=== PATIENT | male | born 1960 | race Caucasian/White ===

== ENCOUNTER 2017-09-19 12:52 | Outpatient (RCR) | payer MEDICARE ==
[2017-09-19] MEDS: HEPARIN SOD (PORCINE) UNIT/HR IVP PRN (11:15)
[2017-09-19] MEDS: HEPARIN SOD (PORCINE) LOAD IVP PRN (11:15)
[~2017-09-19 12:52] MED LIST: CINACALCET HCL 90 MG PO PRN; DEXTROSE 50% 50 ML SYR IVP PRN; DIALYSIS ACETAMINOPHEN 325 MG PO PRN; LIDOCAINE/SOD BICARB 8.4% SYR ID PRN; LOPERAMIDE HCL 2 MG CAP PO PRN; PROMETHAZINE HCL 25 MG TAB PO PRN; SODIUM FERRIC GLUC 62.5 MG/5ML IVP PRN; diphenhydr DIALYSIS 50 MG/ML IVP PRN
[2017-09-19] MEDS: PARICALCITOL 2 MCG/ML VIAL IVP PRN (12:58)
[2017-09-20] MEDS ORDERED: CALC667T3 PO (15:44)
[2017-09-20] MEDS ORDERED: FLUT1DIS27 IH (15:44)
[2017-09-20] MEDS ORDERED: VIT-35 PO (15:44)
[2017-09-20] MEDS ORDERED: ATOR10TA24 PO (15:44)
[2017-09-20] MEDS ORDERED: TEMA-55 PO (15:44)
[2017-09-20] MEDS ORDERED: DILT180C4 PO (15:44)
[2017-09-20] MEDS ORDERED: SEVE800T16 PO (15:44)
[2017-09-20] MEDS ORDERED: ASPI-1471 PO (15:44)
[2017-09-20] MEDS ORDERED: ERGO500037 PO (15:44)
[2017-09-20] MEDS ORDERED: CINA90TA2 PO (15:44)
[2017-09-20] MEDS ORDERED: TRAM-420 PO (15:44)
[2017-09-20] MEDS ORDERED: OXYC-865 PO (16:03)
[2017-09-21] MEDS ORDERED: ACET-1966 PO (08:57)
[2017-09-21] MEDS ORDERED: LOR1 (08:57)
[2017-09-21] MEDS ORDERED: ALBU8.5H IH (08:57)
[2017-09-21] MEDS: HEPARIN SOD (PORCINE) LOAD IVP PRN (11:38)
[2017-09-21] MEDS: HEPARIN SOD (PORCINE) UNIT/HR IVP PRN (11:38)
[2017-09-21] MEDS: PARICALCITOL 2 MCG/ML VIAL IVP PRN (12:20)
[2017-09-21 12:45] LABS: PLATELET COUNT, AUTOMATED 274 K/uL (150-450)
[2017-09-22] MEDS ORDERED: WARF1TAB15 PO (16:14)
[2017-09-22] MEDS ORDERED: WARF2.5T11 PO (16:16)
[2017-09-22] MEDS ORDERED: UMEC1DIS INH (16:21)
[2017-09-23] MEDS: HEPARIN SOD (PORCINE) UNIT/HR IVP PRN (11:22)
[2017-09-23] MEDS: HEPARIN SOD (PORCINE) LOAD IVP PRN (11:22)
[2017-09-23] MEDS: DARBEPOETIN ESRD 25 MCG/ML IVP PRN (11:48)
[2017-09-23] MEDS: PARICALCITOL 2 MCG/ML VIAL IVP PRN (11:49)
[2017-09-26] MEDS: HEPARIN SOD (PORCINE) UNIT/HR IVP PRN (11:18)
[2017-09-26] MEDS: HEPARIN SOD (PORCINE) LOAD IVP PRN (11:19)
[2017-09-26] MEDS: PARICALCITOL 2 MCG/ML VIAL IVP PRN (11:58)
[2017-09-26] MEDS ORDERED: TRIA15OI20 TP (16:48)
[2017-09-28] MEDS: HEPARIN SOD (PORCINE) UNIT/HR IVP PRN (11:45)
[2017-09-28] MEDS: HEPARIN SOD (PORCINE) LOAD IVP PRN (11:46)
[2017-09-28] MEDS: SODIUM FERRIC GLUC 62.5 MG/5ML IVP PRN (13:16)
[2017-09-28] MEDS: PARICALCITOL 2 MCG/ML VIAL IVP PRN (13:17)
[2017-09-29] MEDS ORDERED: METO50TA19 PO (13:49)
[2017-09-29] MEDS ORDERED: DILT180C4 PO (13:49)
[2017-09-29] MEDS ORDERED: HYDR-4225 PO (13:52)
[2017-09-29] MEDS ORDERED: PRED-420 PO (16:48)
[2017-09-30] MEDS: HEPARIN SOD (PORCINE) UNIT/HR IVP PRN (11:32)
[2017-09-30] MEDS: HEPARIN SOD (PORCINE) LOAD IVP PRN (11:32)
[2017-09-30] MEDS: PARICALCITOL 2 MCG/ML VIAL IVP PRN (12:39)
[2017-09-30] MEDS: DARBEPOETIN ESRD 25 MCG/ML IVP PRN (12:39)
[2017-09-30] MEDS: SODIUM FERRIC GLUC 62.5 MG/5ML IVP PRN (12:39)
[2017-10-03] MEDS: HEPARIN SOD (PORCINE) UNIT/HR IVP PRN (11:36)
[2017-10-03] MEDS: HEPARIN SOD (PORCINE) LOAD IVP PRN (11:37)
[2017-10-03] MEDS: SODIUM FERRIC GLUC 62.5 MG/5ML IVP PRN (12:02)
[2017-10-03] MEDS: PARICALCITOL 2 MCG/ML VIAL IVP PRN (12:02)
[2017-10-05] MEDS: HEPARIN SOD (PORCINE) LOAD IVP PRN (11:51)
[2017-10-05] MEDS: HEPARIN SOD (PORCINE) UNIT/HR IVP PRN (11:51)
[2017-10-05] MEDS: PARICALCITOL 2 MCG/ML VIAL IVP PRN (12:34)
[2017-10-05] MEDS ORDERED: SODIUM FERRIC GLUC 62.5 MG/5ML IVP PRN (12:40)
[2017-10-05] MEDS ORDERED: PRED-420 PO ×2 (13:19→15:53)
[2017-10-07] MEDS: HEPARIN SOD (PORCINE) UNIT/HR IVP PRN (11:41)
[2017-10-07] MEDS: HEPARIN SOD (PORCINE) LOAD IVP PRN (11:41)
[2017-10-07] MEDS: PARICALCITOL 2 MCG/ML VIAL IVP PRN (12:41)
[2017-10-07] MEDS: DARBEPOETIN ESRD 25 MCG/ML IVP PRN (12:41)
[2017-10-10] MEDS: HEPARIN SOD (PORCINE) LOAD IVP PRN (11:47)
[2017-10-10] MEDS: HEPARIN SOD (PORCINE) UNIT/HR IVP PRN (11:47)
[2017-10-10] MEDS: PARICALCITOL 2 MCG/ML VIAL IVP PRN (13:06)
[2017-10-12] MEDS ORDERED: SODIUM FERRIC GLUC 62.5 MG/5ML IVP PRN (23:59)
[2017-10-28] MEDS: HEPARIN SOD (PORCINE) LOAD IVP PRN (13:42)
[2017-10-28] MEDS: HEPARIN SOD (PORCINE) UNIT/HR IVP PRN (13:42)
[2017-10-28] MEDS: SODIUM FERRIC GLUC 62.5 MG/5ML IVP PRN (15:20)
[2017-10-28] MEDS: DARBEPOETIN ESRD 25 MCG/ML IVP PRN (15:21)
[2017-10-28] MEDS: PARICALCITOL 2 MCG/ML VIAL IVP PRN (15:21)
[2017-10-31] MEDS: HEPARIN SOD (PORCINE) LOAD IVP PRN (13:37)
[2017-10-31] MEDS: HEPARIN SOD (PORCINE) UNIT/HR IVP PRN (13:38)
[2017-10-31] MEDS: PARICALCITOL 2 MCG/ML VIAL IVP PRN (14:13)
[2017-10-31] MEDS: SODIUM FERRIC GLUC 62.5 MG/5ML IVP PRN (14:13)
[2017-11-02] MEDS: HEPARIN SOD (PORCINE) LOAD IVP PRN (13:53)
[2017-11-02] MEDS: HEPARIN SOD (PORCINE) UNIT/HR IVP PRN (13:53)
[2017-11-02] MEDS: SODIUM FERRIC GLUC 62.5 MG/5ML IVP PRN (14:09)
[2017-11-02] MEDS ORDERED: WARF2.5T62 PO (18:58)
[2017-11-02] MEDS ORDERED: CALC667T3 PO (18:58)
[2017-11-02] MEDS ORDERED: CIN30PT PO (18:58)
[2017-11-02] MEDS ORDERED: SEVE800T16 PO (18:58)
[2017-11-02] MEDS ORDERED: OXYC-823 PO (19:02)
[2017-11-04] MEDS: HEPARIN SOD (PORCINE) LOAD IVP PRN (13:42)
[2017-11-04] MEDS: HEPARIN SOD (PORCINE) UNIT/HR IVP PRN (13:42)
[2017-11-04] MEDS: PARICALCITOL 2 MCG/ML VIAL IVP PRN (14:07)
[2017-11-04] MEDS: DARBEPOETIN ESRD 25 MCG/ML IVP PRN (14:07)
[2017-11-04] MEDS: SODIUM FERRIC GLUC 62.5 MG/5ML IVP PRN (14:08)
[2017-11-09] MEDS ORDERED: SODIUM FERRIC GLUC 62.5 MG/5ML IVP PRN (07:00)
[2017-11-10] MEDS ORDERED: DILT180C4 PO (16:58)
[2017-11-11] MEDS: HEPARIN SOD (PORCINE) LOAD IVP PRN (13:37)
[2017-11-11] MEDS: HEPARIN SOD (PORCINE) UNIT/HR IVP PRN (13:37)
[2017-11-11] MEDS ORDERED: TRAM-420 PO (13:46)
[2017-11-11] MEDS ORDERED: TEMA-55 PO (13:46)
[2017-11-11] MEDS ORDERED: OXYC5TAB38 PO (13:46)
[2017-11-11] MEDS: PARICALCITOL 2 MCG/ML VIAL IVP PRN (14:19)
[2017-11-11] MEDS: DARBEPOETIN ESRD 25 MCG/ML IVP PRN (14:19)
[2017-11-14] MEDS: HEPARIN SOD (PORCINE) UNIT/HR IVP PRN (13:35)
[2017-11-14] MEDS: HEPARIN SOD (PORCINE) LOAD IVP PRN (13:35)
[2017-11-14] MEDS: PARICALCITOL 2 MCG/ML VIAL IVP PRN (14:21)
[2017-11-15] MEDS ORDERED: TRAZ-156 PO (15:59)
[2017-11-16] MEDS: HEPARIN SOD (PORCINE) UNIT/HR IVP PRN (13:52)
[2017-11-16] MEDS: HEPARIN SOD (PORCINE) LOAD IVP PRN (13:52)
[2017-11-16] MEDS: PARICALCITOL 2 MCG/ML VIAL IVP PRN (14:24)
[2017-11-16 14:43] LABS: PLATELET COUNT, AUTOMATED 238 K/uL (150-450)
[2017-11-16 15:09] LABS: INR 1.08
[2017-11-16] MEDS ORDERED: DARBEPOETIN ESRD 100 MCG/0.5ML SYR IVP PRN (16:00)
== END 2017-11-16 12:00 | disposition home or self-care (01) ==
LOC: DIAL 12:52
PROVIDERS: ATTEND Internal Medicine Nephrology
DX: D50.9 Iron deficiency anemia, unspecified (principal); N25.81 Secondary hyperparathyroidism of renal origin; D63.1 Anemia in chronic kidney disease; E11.65 Type 2 diabetes mellitus with hyperglycemia; I12.0 Hypertensive chronic kidney disease with stage 5 chronic kidney disease or end stage renal disease; N18.6 End stage renal disease; Z99.2 Dependence on renal dialysis; Z79.82 Long term (current) use of aspirin; I48.91 Unspecified atrial fibrillation; J44.9 Chronic obstructive pulmonary disease, unspecified; Z99.81 Dependence on supplemental oxygen; I51.7 Cardiomegaly; Z87.891 Personal history of nicotine dependence; E78.5 Hyperlipidemia, unspecified; E78.00 Pure hypercholesterolemia, unspecified; E11.22 Type 2 diabetes mellitus with diabetic chronic kidney disease
CPT/HCPCS: 82040; 82108; 82247; 82310; 82374; 82465; 82565; 82728; 82947; 83540; 83550; 83970; 84075; 84100; 84132; 84295; 84460; 84478; 84520; 85018; 85025; 85610; 86706; 87340; 90999; A4657; J0882; J2501; J2916

== ENCOUNTER → 2017-09-20 | Outpatient (CLI) | payer MEDICARE ==
[~2017-09-20] MED LIST changes: +ACET-1966 PO; +ALBU8.5H IH; +ASPI-1471 PO; +ATOR10TA24 PO; +CALC667T3 PO; +CINA90TA2 PO; -CINACALCET HCL 90 MG PO PRN; -DEXTROSE 50% 50 ML SYR IVP PRN; -DIALYSIS ACETAMINOPHEN 325 MG PO PRN; +DILT180C4 PO; +ERGO500037 PO; +FLUT1DIS27 IH; +HYDR-4225 PO; -LIDOCAINE/SOD BICARB 8.4% SYR ID PRN; -LOPERAMIDE HCL 2 MG CAP PO PRN; +LOR1; +METO50TA19 PO; +OXYC-865 PO; +PRED-420 PO; -PROMETHAZINE HCL 25 MG TAB PO PRN; +SEVE800T16 PO; -SODIUM FERRIC GLUC 62.5 MG/5ML IVP PRN; +TEMA-55 PO; +TRAM-420 PO; +TRIA15OI20 TP; +UMEC1DIS INH; +VIT-35 PO; +WARF1TAB15 PO; +WARF2.5T11 PO; -diphenhydr DIALYSIS 50 MG/ML IVP PRN
--- NOTE | 2017-09-20 15:40 | EKG ---
FACILITY: [facility] - [place] PATIENT NAME: HERLINDA SCHUMACHER : [id number] MR: [id number] V: [id number] EXAM DATE: ORDERING PHYSICIAN: SEVERIANO HAMM TECHNOLOGIST: NAGA Test Reason : AFIB Blood Pressure : / mmHG Vent. Rate : 129 BPM Atrial Rate : 141 BPM P-R Int : 000 ms QRS Dur : 090 ms QT Int : 328 ms P-R-T Axes : 000 090 040 degrees QTc Int : 480 ms Atrial fibrillation Abnormal ECG No previous ECGs available Referred By: HANSEL Confirmed By:
[2017-09-20 16:05] LABS: PLATELET COUNT, AUTOMATED 244 K/uL (150-450)
[2017-09-20 17:47] LABS: INR 1.13
== END ==
LOC: LAB 15:31
PROVIDERS: ATTEND Internal Medicine
DX: I48.91 Unspecified atrial fibrillation (principal); I12.9 Hypertensive chronic kidney disease with stage 1 through stage 4 chronic kidney disease, or unspecified chronic kidney disease; M19.90 Unspecified osteoarthritis, unspecified site; J44.9 Chronic obstructive pulmonary disease, unspecified; N18.6 End stage renal disease; I77.6 Arteritis, unspecified; R06.00 Dyspnea, unspecified
CPT/HCPCS: 36415; 82040; 82247; 82310; 82374; 82435; 82565; 82947; 83036; 83880; 84075; 84132; 84155; 84295; 84443; 84450; 84460; 84484; 84520; 84550; 85025; 85610; 85651; 85730; 86200

== ENCOUNTER → 2017-09-22 | Outpatient (CLI) | payer MEDICARE ==
[~2017-09-22] MED LIST changes: -HYDR-4225 PO; -METO50TA19 PO; -PRED-420 PO; -TRIA15OI20 TP
--- NOTE | 2017-09-22 16:02 | RADIOLOGY IMAGING REPORT ---
FACILITY: [facility] - [place] PATIENT NAME: Dale Gutierrez : 1960 MR: [id number] V: [id number] EXAM DATE: ORDERING PHYSICIAN: SEVERIANO HAMM TECHNOLOGIST: Location: [facility] [place] Patient: Dale Gutierrez : 1960 Visit/Account:[id number] Date of Sevice: 09/22/2017 Exam type: CHEST PA AND LAT History: Chronic A. fib, benign hypertension Comparison: None. Findings: There is moderate blunting of the costophrenic angles bilaterally right greater than left. Different ial diagnosis would include pleural thickening versus bilateral pleural effusions. There is no evide nce of overt pulmonary edema or focal infiltrates. The cardiac silhouette is upper limits of normal in size. There are postsurgical changes of the cervical spine IMPRESSION: 1. Moderate blunting of the costophrenic angles bilaterally, right greater than left consistent with pleural thickening versus pleural effusions. (There are no prior studies available for comparison) Report Dictated By: Bethany Swann MD at 09/22/2017 3:57 PM Report E-Signed By: Bethany Swann MD at 09/22/2017 3:58 PM WSN:[email or web address]
== END ==
LOC: RAD 15:03
PROVIDERS: ATTEND Internal Medicine
DX: R91.8 Other nonspecific abnormal finding of lung field (principal)
CPT/HCPCS: 71046

== ENCOUNTER → 2017-09-26 | Outpatient (REF) | payer MEDICARE ==
[~2017-09-26] MED LIST changes: +TRIA15OI20 TP
[2017-09-26 12:47] LABS: INR 1.04
== END ==
LOC: ZZSENDIN 12:21
PROVIDERS: ATTEND Internal Medicine
DX: I48.91 Unspecified atrial fibrillation (principal)
CPT/HCPCS: 36415; 85610

== ENCOUNTER → 2017-09-28 | Outpatient (REF) | payer MEDICARE ==
[~2017-09-28] MED LIST changes: +HYDR-4225 PO; +METO50TA19 PO; +PRED-420 PO
[2017-09-28 12:57] LABS: INR 1.13
== END ==
LOC: ZZSENDIN 12:32
PROVIDERS: ATTEND Internal Medicine
DX: I48.91 Unspecified atrial fibrillation (principal)
CPT/HCPCS: 36415; 85610

== ENCOUNTER → 2017-10-03 | Outpatient (REF) | payer MEDICARE ==
[2017-10-03 13:12] LABS: INR 1.94
== END ==
LOC: ZZSENDIN 12:31
PROVIDERS: ATTEND Internal Medicine
DX: I48.91 Unspecified atrial fibrillation (principal)
CPT/HCPCS: 36415; 85610

== ENCOUNTER → 2017-10-04 | Outpatient (CLI) | payer MEDICARE ==
--- NOTE | 2017-10-04 11:22 | EKG ---
FACILITY: [facility] PATIENT NAME: HERLINDA SCHUMACHER : [id number] MR: [id number] V: [id number] EXAM DATE: ORDERING PHYSICIAN: SEVERIANO HAMM TECHNOLOGIST: SHILPA Test Reason : AFIB Blood Pressure : / mmHG Vent. Rate : 072 BPM Atrial Rate : 072 BPM P-R Int : 144 ms QRS Dur : 086 ms QT Int : 428 ms P-R-T Axes : 074 082 081 degrees QTc Int : 468 ms Normal sinus rhythm Normal ECG When compared with ECG of 20-SEP-2017 14:20, Sinus rhythm has replaced Atrial fibrillation Vent. rate has decreased BY 57 BPM Referred By: Confirmed By:
[2017-10-04 12:08] LABS: PLATELET COUNT, AUTOMATED 319 K/uL (150-450)
[2017-10-04 12:24] LABS: INR 1.68
== END ==
LOC: RESP 11:18
PROVIDERS: ATTEND Internal Medicine
DX: I48.91 Unspecified atrial fibrillation (principal); N18.6 End stage renal disease; J44.9 Chronic obstructive pulmonary disease, unspecified; I77.6 Arteritis, unspecified; I12.0 Hypertensive chronic kidney disease with stage 5 chronic kidney disease or end stage renal disease
CPT/HCPCS: 36415; 82040; 82247; 82310; 82374; 82435; 82565; 82947; 84075; 84132; 84155; 84295; 84450; 84460; 84520; 85025; 85610; 85651; 86038; 86140

== ENCOUNTER → 2017-10-06 | Outpatient (CLI) | payer MEDICARE ==
[~2017-10-06] MED LIST changes: +REGADENOSON 0.4 MG/5 ML SYR ONE
--- NOTE | 2017-10-07 14:27 | RADIOLOGY IMAGING REPORT ---
FACILITY: [facility] PATIENT NAME: Dale Gutierrez : 1960 MR: [id number] V: [id number] EXAM DATE: ORDERING PHYSICIAN: SEVERIANO HAMM TECHNOLOGIST: Location: [facility] [place] Patient: Dale Gutierrez : 1960 Visit/Account:[id number] Date of Sevice: 10/06/2017 EXAMINATION: Single isotope SPECT imaging with regadenoson infusion and gated SPECT imaging. DATE OF EXAMINATION: 10/06/17. DATE OF INTERPRETATION: 10/06/17. REQUESTING PHYSICIAN: SEVERIANO HAMM. INDICATION: The patient is a 57-year-old M evaluated for atrial fibrillation. PROCEDURE: After informed consent the patient received an intravenous injection of 13.2 mCi of Tc-99 m sestamibi followed at an appropriate time interval by rest imaging. The patient then subsequently received an intravenous infusion of 0.4 mg of regadenoson per protocol without complication. Resting heart rate was 81 bpm with a peak heart rate of 96 bpm. Blood pressure at rest was 120 / 72 and fol lowing infusion was 131 / 65. Baseline EKG demonstrates atrial fibrillation. There were no EKG coyle ges of ischemia following infusion. Symptoms were nonspecific. The patient then received an intrave nous injection of 29.6 mCi of Tc-99m sestamibi followed by stress imaging. RAW DATA: Examination of the summed raw data revealed a good quality study. MYOCARDIAL PERFUSION: The tomographic images demonstrate normal myocardial perfusion with no evidenc e of infarct or ischemia. There is no TID. GATED IMAGES: The gated images demonstrate normal ejection fraction 56% with normal wall motion and thickening. IMPRESSION: 1. Nondiagnostic Lexiscan stress ECG 2. Normal myocardial perfusion scan. 3. Normal LV systolic function; LVEF 56%. 4. Based on the results of this exam, the patient appears to be at low risk for future cardiovascular events. Report Dictated By: Christiano Carrero at 10/07/2017 2:20 PM Report E-Signed By: Christiano Carrero at 10/07/2017 2:23 PM WSN:[id number]
== END ==
LOC: NUC 01:21
PROVIDERS: ATTEND Internal Medicine
DX: I48.91 Unspecified atrial fibrillation (principal); J98.8 Other specified respiratory disorders
CPT/HCPCS: 78452; 93017; 94060; 94726; 94729; A9500; J2785

== ENCOUNTER → 2017-10-07 | Outpatient (REF) | payer MEDICARE ==
[~2017-10-07] MED LIST changes: -REGADENOSON 0.4 MG/5 ML SYR ONE
[2017-10-07 13:53] LABS: INR 1.17
== END ==
LOC: ZZSENDIN 13:27
PROVIDERS: ATTEND Internal Medicine
DX: I48.91 Unspecified atrial fibrillation (principal)
CPT/HCPCS: 85610

== ENCOUNTER 2017-11-04 15:51 | Emergency (ER) | payer MEDICARE ==
[~2017-11-04 15:51] MED LIST changes: -OXYC5TAB38 PO; -TRAZ-156 PO
--- NOTE | 2017-11-04 16:05 | ER Report ---
History and Physical Time Seen By : 16:04 HPI/ROS CHIEF COMPLAINT: Fever, chills, malaise HISTORY OF PRESENT ILLNESS: Patient is a 57-year-old male dialysis dependent patient sent from dialysis after approximately 1.5 hours of treatment and approximately 580 milliliters taken off. Patient reportedly developed a fever, tachycardia while on dialysis and was sent to the emergency department for evaluation. Patient also recently had a total knee replacement approximately 3 weeks ago without any complaints of worsening pain, discharge or erythema. Patient does complain of a cough and shortness of breath with history of COPD on his baseline supplemental oxygen. He does have increased oxygen demand ( 2 lpm @ 5% SPO2) and was turned up to 4 L due to hypoxia. Patient denies headache , blurred vision, nausea, vomiting. REVIEW OF SYSTEMS: Constitutional: + fever, + chills. Eyes: No discharge. ENT: No sore throat. Cardiovascular: No chest pain, no palpitations. Respiratory: + cough, + shortness of breath. Gastrointestinal: No abdominal pain, no vomiting. Genitourinary: No hematuria. Musculoskeletal: No back pain. Skin: No rashes. Neurological: No headache. Allergies: Coded Allergies: No Known Drug Allergies (Unverified , 09/14/17) Home Meds Active Scripts Prednisone 10 Mg Tab (PREDNISONE 10 MG TAB) 10 Mg Tab.ds.pk, 10 MG PO DIRECTED, #20 TAB 1 tablet every day for 3 days and then half tablet every day for 3 days and then stop Prov:SEVERIANO HAMM MD 10/05/17 Hydroxyzine Hcl (HYDROXYZINE HCL) 25 Mg Tablet, 25 MG PO 1-3XD Y for itching, # 30 TAB Prov:SEVERIANO HAMM MD 09/29/17 Metoprolol Succinate (METOPROLOL SUCCINATE) 50 Mg Tab.er.24h, 1 TAB PO QDAY, # 30 TAB 3 Refills Prov:SEVERIANO HAMM MD 09/29/17 Diltiazem Hcl (DILTIAZEM 24HR CD) 180 Mg Cap.er.24h, 180 MG PO QDAY, #30 TAB Prov:SEVERIANO HAMM MD 09/29/17 Triamcinolone Acetonide 0.1% Oint 15 Gm Tube (TRIAMCINOLONE ACETONIDE 0.1% 15 GM TUBE) 15 Gm Oint...g., 15 GM TP BID, #15 G Prov:SEVERIANO HAMM MD 09/26/17 Reported Medications Sevelamer Carbonate (RENVELA) 800 Mg Tablet, 2400 MG PO TIDCF 11/02/17 Cinacalcet Hcl (SENSIPAR) 30 Mg Tablet, 90 MG PO QDAY pt to take at home 2 30mg tabs am, 1 30mg tab QHS, total of 90mg daily 11/02/17 Warfarin Sodium (COUMADIN) 2.5 Mg Tablet, 2.5 MG PO QDAY 11/02/17 Calcium Acetate (CALCIUM ACETATE) 667 Mg Tablet, 667 MG PO TIDCF take 3 tabs 3 times daily with meals 11/02/17 Umeclidinium Brm/Vilanterol Tr (Anoro Ellipta 62.5-25 Mcg INH) 1 Each Disk.w.dev , 1 PUFF INH QDAY 09/22/17 Albuterol Sulfate 90 Mcg/Act (PROAIR HFA 90 MCG/ACT) 8.5 Gm Hfa.aer.ad, 2 PUFF IH Q4H Y for WHEEZING, INHALER 09/21/17 Temazepam (TEMAZEPAM) 30 Mg Capsule, 30 MG PO HS, CAPSULE 09/20/17 Vit B Cmplx 3/Fa/Vit C/Biotin (NEPHRO-JOANNA RX TABLET) 1 Each Tablet, 1 EACH PO QDAY 09/20/17 Ergocalciferol (Vitamin D2) (VITAMIN D2) 50,000 Unit Capsule, 41036 UNIT PO Q7DAY, CAPSULE 09/20/17 Atorvastatin Calcium (LIPITOR) 10 Mg Tablet, 1 TAB PO HS, TAB 09/20/17 Aspirin (ASPIR 81) 81 Mg Tablet.dr, 1 TAB PO QDAY, TAB 09/20/17 Discontinued Reported Medications Oxycodone Hcl (OXYCONTIN) 10 Mg Tab.er.12h, 5 MG PO Q4H Y for PAIN MDD 12 tabs, TAB take 1-2 tabs Q4H PRn for pain, max 12 daily 11/02/17 Sevelamer Carbonate (RENVELA) 800 Mg Tablet, 800 MG PO TID 09/20/17 Cinacalcet Hcl (SENSIPAR) 90 Mg Tablet, 90 MG PO BID 09/20/17 Calcium Acetate (CALCIUM ACETATE) 667 Mg Tablet, 667 MG PO TID 09/20/17 Discontinued Scripts Oxycodone Hcl/Acetaminophen (PERCOCET 5-325 MG TABLET) 1 Each Tablet, 1 EACH PO QID Y for pain, #60 TAB Prov:SEVERIANO HAMM MD 09/20/17 Past Medical/Surgical History Atrial fibrillation, hypertension, chronic renal failure, hemodialysis dependent , right knee replacement Smoking Status: Former Smoker Constitutional Vital Sign - Last 24 Hours 11/04/17 11/04/17 11/04/17 11/04/17 15:51 15:58 15:58 16:06 Temp 100.0 Pulse ??? 126 139 Resp 22 12 B/P (MAP) 126/92 126/92 (103) Pulse Ox 85 96 O2 Delivery Nasal Cannula 11/04/17 11/04/17 11/04/17 11/04/17 16:13 16:21 16:21 16:30 Pulse 120 Resp 18 B/P (MAP) 130/76 (94) ???/??? (1665) Pulse Ox 95 O2 Flow Rate 4.0 11/04/17 11/04/17 11/04/17 11/04/17 16:36 16:39 16:51 17:06 Pulse ??? 122 126 Resp 14 15 B/P (MAP) 147/124 (132) Pulse Ox 95 94 11/04/17 17:25 Temp 100.3 Physical Exam General Appearance: The patient is alert, has no immediate need for airway protection and no signs of toxicity. + ill appearing Eyes: Pupils equal and round no pallor or injection. ENT, Mouth: Mucous membranes are moist. Respiratory: + crackles and rhonchi b/l Cardiovascular:+ tachycardia Gastrointestinal: Abdomen is soft and non tender, no masses, bowel sounds normal. Neurological: No focal neurological deficits Skin: Warm and dry, no rashes. Musculoskeletal: Neck is supple non tender. Right knee TTP at surgical site without drainage, erythema, + b/l 2+ pitting LE edema DIFFERENTIAL DIAGNOSIS: After history and physical exam differential diagnosis was considered for shortness of breath including but not limited to pulmonary infectious process, COPD, asthma, pulmonary embolus and congestive heart failure , postoperative infection Medical Decision Making Data Points Result Diagram: 11/04/17 1606 11/04/17 1606 Laboratory Hematology Test 11/04/17 16:06 Red Blood Count 3.40 M/uL (4.00-5.60) Mean Corpuscular Volume 89.5 fL (80.0-96.0) Mean Corpuscular Hemoglobin 29.7 pg (26.0-33.0) Mean Corpuscular Hemoglobin Concent 33.2 g/dL (32.0-36.0) Red Cell Distribution Width 20.5 % (11.5-14.5) Mean Platelet Volume 7.7 fL (7.2-11.1) Neutrophils (%) (Auto) 75.0 % (39.4-72.5) Lymphocytes (%) (Auto) 8.3 % (17.6-49.6) Monocytes (%) (Auto) 12.8 % (4.1-12.4) Eosinophils (%) (Auto) 2.4 % (0.4-6.7) Basophils (%) (Auto) 1.5 % (0.3-1.4) Nucleated RBC Relative Count (auto) 0.0 /100WBC Neutrophils # (Auto) 4.7 K/uL (2.0-7.4) Lymphocytes # (Auto) 0.5 K/uL (1.3-3.6) Monocytes # (Auto) 0.8 K/uL (0.3-1.0) Eosinophils # (Auto) 0.1 K/uL (0.0-0.5) Basophils # (Auto) 0.1 K/uL (0.0-0.1) Nucleated RBC Absolute Count (auto) 0.00 K/uL Peripheral Blood Smear Yes Y/N Sodium Level 138 mmol/L (137-145) Potassium Level 5.0 mmol/L (3.5-5.0) Chloride Level 92 mmol/L (98-107) Carbon Dioxide Level 30 mmol/L (22-30) Blood Urea Nitrogen 17 mg/dl (9-21) Creatinine 3.50 mg/dl (0.66-1.25) Glomerular Filtration Rate Calc 18.2 Random Glucose 120 mg/dl (75-110) Lactate 2.7 mmol/L (0.7-2.1) Calcium Level 9.9 mg/dl (8.4-10.2) Total Bilirubin 1.2 mg/dl (0.2-1.3) Aspartate Amino Transf (AST/SGOT) 44 U/L (0-35) Alanine Aminotransferase (ALT/SGPT) 25 U/L (0-56) Alkaline Phosphatase 357 U/L (0-126) Total Protein 7.7 gm/dl (6.3-8.2) Albumin 4.1 g/dl (3.5-5.0) Lipase 137 U/L (23-300) Chemistry Test 11/04/17 16:06 White Blood Count 6.2 k/uL (4.5-11.0) Red Blood Count 3.40 M/uL (4.00-5.60) Hemoglobin 10.1 g/dL (14.0-18.0) Hematocrit 30.4 % (42.0-52.0) Mean Corpuscular Volume 89.5 fL (80.0-96.0) Mean Corpuscular Hemoglobin 29.7 pg (26.0-33.0) Mean Corpuscular Hemoglobin Concent 33.2 g/dL (32.0-36.0) Red Cell Distribution Width 20.5 % (11.5-14.5) Platelet Count 169 K/uL (150-450) Mean Platelet Volume 7.7 fL (7.2-11.1) Neutrophils (%) (Auto) 75.0 % (39.4-72.5) Lymphocytes (%) (Auto) 8.3 % (17.6-49.6) Monocytes (%) (Auto) 12.8 % (4.1-12.4) Eosinophils (%) (Auto) 2.4 % (0.4-6.7) Basophils (%) (Auto) 1.5 % (0.3-1.4) Nucleated RBC Relative Count (auto) 0.0 /100WBC Neutrophils # (Auto) 4.7 K/uL (2.0-7.4) Lymphocytes # (Auto) 0.5 K/uL (1.3-3.6) Monocytes # (Auto) 0.8 K/uL (0.3-1.0) Eosinophils # (Auto) 0.1 K/uL (0.0-0.5) Basophils # (Auto) 0.1 K/uL (0.0-0.1) Nucleated RBC Absolute Count (auto) 0.00 K/uL Peripheral Blood Smear Yes Y/N Glomerular Filtration Rate Calc 18.2 Lactate 2.7 mmol/L (0.7-2.1) Calcium Level 9.9 mg/dl (8.4-10.2) Total Bilirubin 1.2 mg/dl (0.2-1.3) Aspartate Amino Transf (AST/SGOT) 44 U/L (0-35) Alanine Aminotransferase (ALT/SGPT) 25 U/L (0-56) Alkaline Phosphatase 357 U/L (0-126) Total Protein 7.7 gm/dl (6.3-8.2) Albumin 4.1 g/dl (3.5-5.0) Lipase 137 U/L (23-300) EKG/Imaging EKG Interpretation 12 lead EKG: Atrial fibrillation with PVCs rate 152 with no ischemic changes. Rhythm: Atrial fibrillation Monitor Interpretation: Atrial Fibrillation ED Course/Re-evaluation ED Course Patient is a 67-year-old male here with complaints of acute onset of fever, tachycardia while on dialysis. Patient is postop from a total knee approximately 3 weeks ago. Patient complains of general malaise, chills, mild shortness of breath and hypoxia on his baseline 2 L nasal cannula for COPD. Patient also has a known history of atrial fibrillation on Coumadin and metoprolol. EKG confirmed atrial fibrillation with PVCs. Patient was noted to have scattered rhonchi and crackles on exam. Lactate was 2.7 however the patient was noted to not have a leukocytosis white blood cell count was 6000. Patient was treated for COPD exacerbation and blood cultures were collected. Patient was given vancomycin and cefepime for broad spectrum coverage. I contacted [facility] for transfer as the patient will need close monitoring, further treatment and access to inpatient hemodialysis as he did not receive his entire course while in the outpatient dialysis session today. He received approximately 1.5 hours and had approximately 558 mL out before terminating the session. Patient was accepted to the above hospital. I updated the patient regarding the plan. Decision to Disposition Date: Nov 04, 2017 Decision to Disposition Time: 17:38 Depart Departure Latest Vital Signs Vital Signs Date Time Temp Pulse Resp B/P (MAP) Pulse Ox O2 Delivery O2 Flow Rate FiO2 11/04/17 17:25 100.3 11/04/17 17:06 126 15 94 11/04/17 16:39 147/124 (132) 11/04/17 16:21 4.0 11/04/17 15:58 Nasal Cannula Impression: Primary Impression: Fever Additional Impressions: Shortness of breath Atrial fibrillation COPD exacerbation Condition: Condition Unchanged Disposition: XFER TO [facility] ([facility]) Referrals: SEVERIANO HAMM MD (PCP) Problem Qualifiers BRIANNA BURROUGHS DO Nov 04, 2017 16:05
[2017-11-04 16:21] LABS: PLATELET COUNT, AUTOMATED 169 K/uL (150-450)
--- NOTE | 2017-11-04 16:33 | EKG ---
FACILITY: [facility] - [place] PATIENT NAME: HERLINDA SCHUMACHER : [id number] MR: [id number] V: [id number] EXAM DATE: ORDERING PHYSICIAN: BRIANNA BURROUGHS TECHNOLOGIST: JAMIE Restrepo Reason : TACHY Blood Pressure : / mmHG Vent. Rate : 152 BPM Atrial Rate : 152 BPM P-R Int : 000 ms QRS Dur : 082 ms QT Int : 316 ms P-R-T Axes : 000 095 056 degrees QTc Int : 502 ms Atrial fibrillation with rapid ventricular response Frequent PVCs with couplets Rightward axis Borderline ECG When compared with ECG of 04-OCT-2017 10:14, Current undetermined rhythm precludes rhythm comparison, needs review Confirmed by MARIO HOLDER ([id number]) on 11/04/2017 5:54:50 PM Referred By: HEIKE Confirmed By:MARIO HOLDER
[2017-11-04] MEDS ORDERED: VANCOMYCIN 1 GM ADDVIAL 1 GM in NS(*) 0.9% 250 ML ADDVAN BAG 250 ML IVPB ONE (16:45)
[2017-11-04] MEDS ORDERED: CEFEPIME HCL 1 GM VIAL IVP ONE (16:45)
--- NOTE | 2017-11-04 16:50 | RADIOLOGY IMAGING REPORT ---
FACILITY: [facility] - [place] PATIENT NAME: Dale Gutierrez : 1960 MR: [id number] V: [id number] EXAM DATE: ORDERING PHYSICIAN: BRIANNA BURROUGHS TECHNOLOGIST: Location: [facility] Patient: Dale Gutierrez : 1960 Visit/Account:[id number] Date of Sevice: 11/04/2017 2 VIEWS CHEST INDICATION: Fever, cough and shortness of breath. COMPARISON: 09/22/2017 FINDINGS: There are small bilateral pleural effusions identified. Both effusions appear smaller than on the edgar or study. No consolidation or air bronchograms. There is atelectasis seen within the left lung base. Mild perihilar interstitial opacities are seen which are not specific. Heart size is borderline enlar ged and is unchanged. Fusion procedures have been performed of the cervical spine which are incomplet esau evaluated. Atherosclerosis noted within the aortic arch. IMPRESSION: 1. Mild, nonspecific bilateral perihilar interstitial opacities. This could reflect early interstitia l edema in the appropriate setting. 2. Small bilateral pleural effusions which appear smaller than on the prior study. 3. Borderline heart size. Report Dictated By: Tray Sims at 11/04/2017 4:43 PM Report E-Signed By: Tray Sims at 11/04/2017 4:47 PM WSN:[id number]
[2017-11-04 18:00] VITALS: BP 155/88
[2017-11-04] MEDS ORDERED: ACETAMINOPHEN 500 MG TAB PO ONE (18:20)
== END 2017-11-04 18:47 | disposition short-term general hospital (02) ==
LOC: ER 16:11
DX: I48.91 Unspecified atrial fibrillation (principal); J44.1 Chronic obstructive pulmonary disease with (acute) exacerbation; R50.9 Fever, unspecified; R06.02 Shortness of breath
CPT/HCPCS: 36415; 71046; 83605; 83690; 85025; 87040; 93005; 96365; 96375; 99285; A9270; J0692; J3370; J7050; 82040; 82247; 82310; 82374; 82435; 82565; 82947; 84075; 84132; 84155; 84295; 84450; 84460; 84520

== ENCOUNTER → 2017-11-04 | Outpatient (CLI) | payer MEDICARE ==
[~2017-11-04] MED LIST changes: +CIN30PT PO; +OXYC-823 PO; +OXYC5TAB38 PO; +TRAZ-156 PO; +WARF2.5T62 PO
== END ==
LOC: AMB 18:19
PROVIDERS: ATTEND Nurse Practitioner
DX: R50.9 Fever, unspecified (principal); J44.1 Chronic obstructive pulmonary disease with (acute) exacerbation
CPT/HCPCS: A0425; A0426

== ENCOUNTER → 2017-11-11 | Outpatient (REF) | payer MEDICARE ==
[~2017-11-11] MED LIST changes: +OXYC5TAB38 PO
[2017-11-11 14:41] LABS: INR 1.86
== END ==
LOC: ZZSENDIN 14:19
PROVIDERS: ATTEND Internal Medicine
DX: I48.91 Unspecified atrial fibrillation (principal); J44.9 Chronic obstructive pulmonary disease, unspecified; N18.6 End stage renal disease
CPT/HCPCS: 36415; 82040; 82247; 82310; 82374; 82435; 82565; 82947; 84075; 84132; 84155; 84295; 84450; 84460; 84520; 85027; 85610

== ENCOUNTER → 2017-11-14 | Outpatient (REF) | payer MEDICARE ==
[~2017-11-14] MED LIST changes: +TRAZ-156 PO
[2017-11-14 14:54] LABS: INR 1.23
== END ==
LOC: ZZSENDIN 14:25
PROVIDERS: ATTEND Nurse Practitioner Family
DX: I48.91 Unspecified atrial fibrillation (principal); N18.6 End stage renal disease; J44.9 Chronic obstructive pulmonary disease, unspecified
CPT/HCPCS: 82040; 82247; 82310; 82374; 82435; 82565; 82947; 84075; 84132; 84155; 84295; 84450; 84460; 84520; 85027; 85610

== ENCOUNTER → 2017-11-16 | Outpatient (REF) | payer MEDICARE ==
[2017-11-16 18:10] VITALS: BP 116/68
[2017-11-16 18:21] VITALS: BP 116/60
[2017-11-16 19:05] VITALS: BP 104/62
== END ==
LOC: ZZSENDIN 14:29 → DIAL 18:00 → EDSTATUS 18:00 → ZZSENDIN 18:03 → EDSTATUS 18:03
PROVIDERS: ATTEND Internal Medicine
DX: J43.8 Other emphysema (principal); I13.11 Hypertensive heart and chronic kidney disease without heart failure, with stage 5 chronic kidney disease, or end stage renal disease; N18.6 End stage renal disease
CPT/HCPCS: 82728; 83540; 83550; 86850; 86900; 86901; 86920; P9016; 82040; 82247; 82310; 82374; 82435; 82565; 82947; 84075; 84132; 84155; 84295; 84450; 84460; 84520

== ENCOUNTER → 2017-11-25 | Outpatient (CLI) | payer MEDICARE ==
[2017-11-25 09:23] LABS: INR 2.09
[2017-11-25 10:05] LABS: PLATELET COUNT, AUTOMATED 292 K/uL (150-450)
--- NOTE | 2017-11-25 13:39 | RADIOLOGY IMAGING REPORT ---
FACILITY: [facility] PATIENT NAME: Dale Gutierrez : 1960 MR: [id number] V: [id number] EXAM DATE: ORDERING PHYSICIAN: SEVERIANO HAMM TECHNOLOGIST: Location: [facility] Patient: Dale Gutierrez : 1960 Visit/Account:[id number] Date of Sevice: 11/25/2017 2 VIEWS CHEST INDICATION: Preop exam. COPD. COMPARISON: X-ray examination November 04, 2017 FINDINGS: Heart is enlarged. Mild central vascular congestion with interstitial coarsening. Small bilateral eff usions. No alveolar consolidation or acute bony finding. Surgical clips and a stent overlying the soft tissue s left upper arm. IMPRESSION: 1. Findings indicative of CHF, interstitial edema and small bilateral effusions. Report Dictated By: Nicolas Duarte MD at 11/25/2017 1:34 PM Report E-Signed By: Nicolas Duarte MD at 11/25/2017 1:35 PM WSN:[id number]
== END ==
LOC: RESP 08:29
PROVIDERS: ATTEND Internal Medicine
DX: Z01.818 Encounter for other preprocedural examination (principal); G47.33 Obstructive sleep apnea (adult) (pediatric); J44.9 Chronic obstructive pulmonary disease, unspecified; N18.6 End stage renal disease; I48.91 Unspecified atrial fibrillation; I12.0 Hypertensive chronic kidney disease with stage 5 chronic kidney disease or end stage renal disease
CPT/HCPCS: 36415; 71046; 82040; 82247; 82310; 82374; 82435; 82465; 82565; 82728; 82947; 83540; 83550; 83718; 84075; 84132; 84155; 84295; 84443; 84450; 84460; 84478; 84520; 85025; 85610